=== PATIENT | female | born 1950 | race Caucasian/White ===

== ENCOUNTER 2021-03-08 14:20 | Outpatient (REF) | payer OTHER, SELFPAY ==
--- NOTE | 2021-03-08 16:05 | MHC.AU.ANO ---
Adult Audiological Evaluation Date of Visit: 03/08/21 Ward Service Supervisor Used: Not Applicable Reason for Appointment: Audiologic evaluation due to decreased hearing, left ear greater than right. Charis reports she first noticed a gradual decrease in left ear hearing ability with a constant whooshing or 'static sound in the left ear at least 5 years ago. She usually uses the left ear on the phone and noticed approximately two months ago when experiencing sinus/cold symptoms, she suddenly could not hear when using the phone on the left ear. Hearing in the left ear did improve after the cold symptoms resolved; however, she feels the hearing fluctuates. Charis denies any problems with dizziness/balance/vertigo and no history of head trauma. 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 Due to COVID-19, she has not been shooting. Her father had a history of hearing loss and vertigo. Charis is scheduled to see Loan And Credit Manager, Dr. Rush on 06/02/2021. Has hearing been tested previously?: No Hearing Handicap Inventory: HHIE SCORE: 8 Based on HHIE score, patient has: No perceived hearing handicap Ear History: Family History of Hearing Loss?: Yes: Father History of Ear Wax Buildup: As a child Bothersome Tinnitus/Ringing/Noises in Ears: Left Ear Medical History: Medical History: Measles, Mumps, Past history of Tobacco Use Medication List: Atorvastatin, L-Lysine, Multivitamin, Calcium, Florastor Otoscopy: Right Ear: Unremarkable Left Ear: Clear canal with a small area of redness on the bottom of canal. Tympanometry: Tympanometry performed due to: To assess integrity of the middle ear system Right Ear: Normal Middle Ear System (Type A) Left Ear: Normal Middle Ear System (Type A) Otoacoustic Emissions Frequency Range Used: 1.6-8 kHz Right Ear Results: Present 9921-6453 Hz Absent 0743-0398 Hz Analysis: Present emissions suggest normal cochlear function Rules out peripheral hearing loss greater than a mild degree Reduced/Absent emissions suggest cochlear dysfunction Left Ear Results: Absent Emissions Analysis: Reduced/Absent emissions suggest cochlear dysfunction Results are consistent with degree and configuration of hearing loss Hearing Evaluation: Transducer(s) Used: Insert Earphones Bone Conduction Method: Conventional Audiometry Stimuli Used: Pure Tones Right Ear: Description of Hearing: Normal hearing thresholds 250-4000 Hz, sloping to borderline normal thresholds at 1182-7865 Hz Left Ear: Description of Hearing: Moderately-severe mixed hearing loss at 250 and 500 Hz, rising to a moderate mixed hearing loss 1923-4110 Hz Speech Recognition Threshold (SRT): Method Used: Monitored Live Voice Stimuli Used: Spondee Words Right Ear: 10 dB HL Left Ear: 50 dB HL Word Discrimination: Method: Recorded Lists Word Lists Used: NU-6 Right Ear: 100% at 50 dB HL Left Ear: 36% at 85 dB HL Most Comfortable Level (MCL): Right Ear:DNT Left Ear: 85 dB HL Recommendations: Proceed with the consultation with Dr. Rush for further work-up of the asymmetric hearing loss and left ear tinnitus. Audiological re-evaluation in 6 months. Will send a reminder card. Diagnosis: Primary Diagnosis: H90.72 Mixed HL, Unilateral, Left Ear, W/Unrestricted Contralateral Secondary Diagnosis: H93.12 Tinnitus, Left Ear Services Performed: Comprehensive Audiological Evaluation (CPT 04727) Diagnostic Otoacoustic Emissions (CPT 75597, 26+TC) Tympanometry (CPT 15315) Signature: Provider: Sunshine Ivy, CCC-A
== END 2021-03-08 14:21 | disposition home or self-care (01) ==
LOC: HO.SH 14:20
PROVIDERS: Visit Provider Physician Assistant
DX: H90.72 Mixed conductive and sensorineural hearing loss, unilateral, left ear, with unrestricted hearing on the contralateral side (principal); H93.12 Tinnitus, left ear
CPT/HCPCS: 92557; 92567; 92588

== ENCOUNTER 2021-11-01 10:26 | Outpatient (REF) | payer SELFPAY ==
--- NOTE | 2021-11-01 11:44 | MHC.AU.HAS ---
Hearing Aid Evaluation Date of Visit: 11/01/21 Historical Information: Description of Hearing: Right Ear - Normal hearing thresholds 250-8000 Hz Left Ear - Moderately-severe rising to moderate mixed hearing loss with poor speech discrimination. Current personal amplification information, if applicable: None Summary: Patient was referred for ENT consult after being tested at this office in February 2021. Patient saw Dr. Rush in May 2021. Had knee surgery and just able to now come to appointment for HAE. No imagining study was completed and patient reports Dr. Washington recommended Cochlear Implant for the left ear. Patient did not want CI and was cleared for amplification for the left ear only. We discussed extensively the potential problem with just aiding the left ear due to the very poor discrimination ability. Patient does want to try amplification. I recommend ordering a CROS system. Will do a quick pure tone and speech discrimination/Quick SIN prior to fitting aids, and then do Aided Quick SIN to see if any improvement with just using aid on left ear. If not will proceed with fitting the CROS system. Patient would like to trial Premium rechargeable hearing aid(s). Hearing Aid Prescription: Based on the individual?s shared listening needs, communication environments, dexterity, desire for connectivity, and personal preferences, the following prescription for amplification has been made: Right ear: Family Services Specialist: [email or web address] Model: Audeo P 90-R Battery Size: Rechargeable Color: P1 Sand Beige Auto Body Repairer: 1 Medium Type of Dome: Open Left ear:Family Services Specialist: Phonak Model: CROS-R Battery Size: Rechargeable Color: P1 Sand Beige Auto Body Repairer: 1 CROS Type of Dome: Open Plan of Care: Patient wishes to purchase hearing aids as prescribed Action Taken/Action Needed:Hearing Aid Fitting will be scheduled when all materials received Primary Diagnosis: H90.72 Mixed HL, Unilateral, Left Ear, W/Unrestricted Contralateral Secondary Diagnosis: H93.12 Tinnitus, Left Ear Signature:Provider: César Ivy, [facility]
== END 2021-11-01 10:27 | disposition home or self-care (01) ==
LOC: HO.HAP 10:26
PROVIDERS: PCP Internal Medicine; Visit Provider Otolaryngology
DX: Z46.1 Encounter for fitting and adjustment of hearing aid (principal); H90.72 Mixed conductive and sensorineural hearing loss, unilateral, left ear, with unrestricted hearing on the contralateral side; H93.12 Tinnitus, left ear
CPT/HCPCS: 92590; 92591

== ENCOUNTER 2021-11-09 08:41 | Outpatient (REF) | payer SELFPAY ==
--- NOTE | 2021-11-24 11:52 | MHC.AU.HFL ---
Hearing Instrument Fitting- Adult- Left Ear Date of Visit: 11/09/21 Hearing Instrument(s) Dispensed: Left Ear: [place] Rug Setter: Phonak Model: Audeo P 90-R Serial Number: [id number] Repair Warranty: 01/30/2025 Loss and Damage Warranty: 01/30/2025 Battery Size: Rechargeable Color: P1 Sand Beige Glue Mounter Operator: 1M Type of Dome: Small Open Type of Wax Guard: CeruShield Summary of Fitting: Patient has a fluctuating loss in the left ear. She has a history of significant congestion/allergies. At her last visit on 03/08/2021, she was found to have moderately-severe rising to moderate mixed hearing loss with 36% speech discrimination in the left ear. Patient was referred to ENT. Per patient, no imaging studies were ordered and a cochlear implant was recommended. Patient was not ready to pursue a cochlear implant at this time, and opted to try a CROS hearing aid system. Given the length of time since her last audio, a quick pure tone and word discrimination re-check was performed. The results showed that the conductive component appears to have resolved, and the thresholds have improved in the left ear. Her word discrimination in the left ear is not 92%. The left ear is now considered aidable. Patient was fit with the Phonak Audeo P90-R on her left ear. The CROS was returned to [employer], as it is not needed. Feedback senior project manager was run. Verifit was performed and levels adjusted to better reach targets. Patient felt it was intially too loud- gain was lowered. Patient was pleased with the sound of the instrument. It was not paired to her phone at this time.Hearing aid care and maintenance were discussed and practiced. Recommendations: A hearing instrument follow-up was scheduled. Follow-up with ENT may be warranted to discuss the improvement in hearing, her continued concerns about congestion/allergies, and to further investigate the sensorineural asymmetry. Diagnosis Code(s): Primary Diagnosis: H90.42 SNHL Unilateral Left Side, W/Unrestricted Contralateral Hearing Secondary Diagnosis: H93.12 Tinnitus, Left Ear Signature: Provider: Sunshine Toro, [facility]
--- NOTE | 2021-11-24 11:53 | MHC.AU.HFL ---
Hearing Instrument Fitting- Adult- Left Ear Date of Visit: 11/09/21 Hearing Instrument(s) Dispensed: Left Ear: Asset Administrator: Phonak Model: Audeo P 90-R Serial Number: [id number] Repair Warranty: 01/30/2025 Loss and Damage Warranty: 01/30/2025 Battery Size: Rechargeable Color: P1 Sand Beige Clean Rice Broker: 1M Type of Dome: Small Open Type of Wax Guard: CeruShield Summary of Fitting: Patient has a fluctuating loss in the left ear. She has a history of significant congestion/allergies. At her last visit on 03/08/2021, she was found to have moderately-severe rising to moderate mixed hearing loss with 36% speech discrimination in the left ear. Patient was referred to ENT. Per patient, no imaging studies were ordered and a cochlear implant was recommended. Patient was not ready to pursue a cochlear implant at this time, and opted to try a CROS hearing aid system. Given the length of time since her last audio, a quick pure tone and word discrimination re-check was performed. The results showed that the conductive component appears to have resolved, and the thresholds have improved in the left ear. Her word discrimination in the left ear is not 92%. The left ear is now considered aidable. Patient was fit with the Phonak Audeo P90-R on her left ear. The CROS was returned to [employer], as it is not needed. Feedback social media project manager was run. Verifit was performed and levels adjusted to better reach targets. Patient felt it was intially too loud- gain was lowered. Patient was pleased with the sound of the instrument. It was not paired to her phone at this time.Hearing aid care and maintenance were discussed and practiced. Recommendations: A hearing instrument follow-up was scheduled. Follow-up with ENT may be warranted to discuss the improvement in hearing, her continued concerns about congestion/allergies, and to further investigate the sensorineural asymmetry. Diagnosis Code(s): Primary Diagnosis: H90.42 SNHL Unilateral Left Side, W/Unrestricted Contralateral Hearing Secondary Diagnosis: H93.12 Tinnitus, Left Ear Signature: Provider: Sunshine Toro, [facility]
== END 2021-11-09 08:42 | disposition home or self-care (01) ==
LOC: HO.HAP 08:41
PROVIDERS: Visit Provider Internal Medicine
DX: Z46.1 Encounter for fitting and adjustment of hearing aid (principal); H90.42 Sensorineural hearing loss, unilateral, left ear, with unrestricted hearing on the contralateral side
CPT/HCPCS: V5257; V5299

== ENCOUNTER 2021-12-27 12:57 | Outpatient (REF) | payer SELFPAY | END 2021-12-27 12:58 | disposition home or self-care (01) | LOC: HO.HAP 12:57 | PROVIDERS: Visit Provider Internal Medicine | DX: Z13.89 Encounter for screening for other disorder (principal) ==

== ENCOUNTER 2022-10-17 09:55 | Outpatient (REF) | payer SELFPAY ==
--- NOTE | 2022-10-17 12:44 | MHC.AU.HA3 ---
Hearing Instrument Follow-Up- Binaural Date of Visit: 10/17/22 Left Ear: Make, Model, Color, Serial Number: Maryan Brito P90-R SN: [id number] Color: Sand Beige Pastry Artist Repair Warranty: 01/30/2025 Pastry Artist Loss and Damage Warranty: 01/30/2025 [facility] Service Plan: 01/30/2025 Battery Size: Rechargeable Coke Loader/Slim Tube: 1M Earmold/Dome/CShell/SlimTip: Small open dome Type of Wax Guard: CeruShield Dispensed By: [facility] Date of Fittin11/09/2021 Follow-Up Summary: Charis reported that by the end of the day her hearing aid often sounds weaker than the beginning of the day, although it does not happen every day. She is unsure of any other specifics. Cleaned hearing aid. Replaced dome, wax guard, and retention tail. Vacuumed microphones and ran through dehumidifier. Increased overall volume slightly as well as noise management settings at Charis's request. She noted improvement in office. Charis will try the hearing aid with the adjustments. The perceived change in sound quality may be associated with her history of frequent congestion/allergies and fluctuating hearing loss or possibly due to auditory fatigue by the end of the day. Encourage use of volume control, as needed. If problem persists, Charis will drop the hearing aid off to be sent to the dental laboratory supervisor for in-warranty repair. Recommendations: Hearing instrument follow-up or maintenance as needed. Patient will call if problems persist. Diagnosis Code(s): Primary Diagnosis: H90.42 SNHL Unilateral Left Side, W/Unrestricted Contralateral Hearing Signature: Provider: Nate Brock, [facility]
== END 2022-10-17 09:56 | disposition home or self-care (01) ==
LOC: HO.HAP 09:55
PROVIDERS: Visit Provider Internal Medicine
DX: Z13.89 Encounter for screening for other disorder (principal)

== ENCOUNTER 2023-06-25 15:40 | Outpatient (REF) | payer SELFPAY | END 2023-06-25 15:41 | disposition home or self-care (01) | LOC: HO.HAP 15:40 | PROVIDERS: Visit Provider Internal Medicine | DX: Z13.89 Encounter for screening for other disorder (principal) ==

== ENCOUNTER 2024-01-08 15:54 | Outpatient (REF) | payer SELFPAY ==
--- NOTE | 2024-01-08 16:53 | MHC.AU.HA3 ---
Hearing Instrument Follow-Up- Date of Visit: 01/08/24 Left Ear: Make, Model, Color, Serial Number: Phonyany Figueroao P90-R SN: [id number] Color: Sand Beige Direct Sales Consultant Repair Warranty: 01/30/2025 Direct Sales Consultant Loss and Damage Warranty: 01/30/2025 [facility] Service Plan: 01/30/2025 Battery Size: Rechargeable Director Life Sciences/Slim Tube: 1M Earmold/Dome/CShell/SlimTip: Small open dome with retention tail Type of Wax Guard: CeruStop Dispensed By: [facility] Date of Fittin11/09/2021 Follow-Up Summary: Reports aid is not charging in credit card control clerk. Found aid to be in stock mode. Resolved. Firmware updated. Cleaned and checked aid, listening check positive. Gave a new Phonak charging block as well, for good measure. Recommendations: Recommendations: Hearing instrument follow-up or maintenance as needed. Diagnosis Code(s): Primary Diagnosis: H90.42 SNHL Unilateral Left Side, W/Unrestricted Contralateral Hearing Secondary Diagnosis: H93.12 Tinnitus, Left Ear Signature: Provider: Nate Fajardo, [facility]
== END 2024-01-08 15:55 | disposition home or self-care (01) ==
LOC: HO.HAP 15:54
PROVIDERS: Visit Provider Internal Medicine
DX: Z13.89 Encounter for screening for other disorder (principal)

== ENCOUNTER 2024-10-02 08:22 | Outpatient (REF) | payer SELFPAY ==
--- OUTSIDE RECORDS SUMMARY | 2024-10-02 08:27 | XMS_ITS | Clinical Summary ---
Author Organization [facility] Address [address] [place] [address] Care Team Providers Care Head Of Advertising Name Role Phone Leslie Lanza MD Primary Care Provid er Allergies Active Allergy Reactions Criticality Noted Date Comments Penicillins Swelling Medium 01/06/2013 Swelling At Arm site and rash Medications Medication Sig Dispensed Refills Start Date End Date Status atorvastatin (LIPITOR) tablet 10 mg Take 10 mg by mouth daily. 0 05/11/2021 Active L-Lysine 1000 MG TABS Take 2 tablets by mouth daily. 0 Active Multiple Vitamins-Minerals (CENTRUM SILVER PO) Take 1 tablet by mouth daily. 0 Active CALCIUM PO Take 750 mg by mouth daily. 0 Active Saccharomyces boulardii (FLORASTOR PO) Take 1 tablet by mouth daily. 0 Active B Complex Vitamins (B COMPLEX 1 PO) Take 1 tablet by mouth daily. 0 Active vitamin D3 (cholecalciferol) 25 MCG (1000 UT) tablet Take 25 mcg by mouth daily. 0 Active methocarbamol (ROBAXIN) 750 MG tablet Take 1 tablet (750 mg total) by mouth 4 (four) times a day. 180 tablet 0 07/31/2021 Active oxyCODONE (ROXICODONE) 5 MG immediate release tablet Take 1 tablet (5 mg total) by mouth every 4 (four) hours as needed for pain. 42 tablet 0 07/31/2021 Active clindamycin (CLEOCIN) 300 MG capsule Take 2 tabs one hour prior to dental procedure 2 capsule 2 08/09/2021 Active Active Problems Problem Noted Date Diagnosed Date Colon polyp 03/06/2021 Overview: 25mm polpy cecum- repeat colonoscopy in 6 months for surveillance after piecemeal polypetomy Diverticulosis 03/06/2021 Overview: Sigmoid colon- colonoscopy 03/02/2021 Primary osteoarthritis of both knees 01/24/2018 Environmental allergies 11/06/2016 Primary localized osteoarthrosis of hand 015 Adenoma of colon 05/18/2014 Overview: Dr. Miranda; 2 yr f/u; pt has declined Hypercholesterolemia 01/14/2013 Immunizations Name Administration Dates Next Due Covid-19 (FoundValue) Dilution Required 01/13/2021,0 07/09/2020,06/17/2020 Family History Medical History Relation Name Comments Heart disease Father CHF Heart disease Mother CHF No Sig Med Hx Sister 1 No Sig Med Hx Sister 2 Relation Name Status Comments Father (Age 87) Mother (Age 83) Sister 1 Alive Sister 2 Alive Social History Tobacco Use Types Packs/Day Years Used Date Smoking Tobacco: Former Cigarettes 2 1 - 1994 Smokeless Tobacco: Never Alcohol Use Standard Drinks/Week Comments Yes 14 (1 standard drink = 0.6 oz pu re alcohol) Sex and Gender Information Value Date Recorded Sex Assigned at Female 07/14/2021 9:39 AM EDT Gender Identity Female 07/14/2021 9:39 AM EDT Sexual Orientation Not on file Job Start Date Occupation Industry Not on file Not on file Not on file Last Filed Vital Signs Vital Sign Reading Time Taken Comments Blood Pressure 128/79 07/31/2021 1:16 PM EDT Pulse 65 07/31/2021 12:45 PM EDT Temperature 36.1 C (97 F) 07/31/2021 10:15 AM EDT Respiratory Rate 11 07/31/2021 12:45 PM EDT Oxygen Saturation 96% 07/31/2021 12:45 PM EDT Inhaled Oxygen Concentration - - Weight 70.8 kg (156 lb) 12/01/2021 2:56 PM EDT Height 167.6 cm (5' 6 ) 12/01/2021 2:56 PM EDT Body Mass Index 25.18 12/01/2021 2:56 PM EDT Plan of Treatment Health Maintenance Due Date Last Done Comments Hepatitis C Screening 1950 Depression Screening 1963 Preventative Health Evaluation 11/01/1969 Colon Cancer Screening (Colonoscopy) 11/01/1996 Breast Cancer Screening (Mammogram) 11/01/2001 Shingrix-Zoster Vaccine (1 of 2) 11/01/2001 Fall Risk Assessment 11/01/2016 Osteoporosis Screening (DEXA Scan) 11/01/2016 DTap / Tdap / Td (2 - Td or Tdap) 01/06/2023 01/06/2013 COVID-19 Vaccine ( season) 2023 01/13/2021, 07/09/2020, 06/17/2020, Additional history exists Influenza Vaccine (#1) 2024 , 01/13/2018, 12/16/2014, Additional history exists RSV Adult > 60+ Yrs or (1 - 1-dose 75+ series) 11/01/2026 Pneumococcal Vaccine Completed 01/24/2018, 11/07/19 17 Hepatitis B Vaccines Aged Out No long er eligible based on patient's age to complete this topic RSV Ped < 20 months Aged Out No longe r eligible based on patient's age to complete this topic Medical Devices Implanted Type Area Cold Roll Operator Device Identifier Shelf Expiration Date Model / Serial / Lot Knee Ptla Asym Tritanium 32x10 Stry-Howm [id number] - [id number] Implanted:Qty: 1 on 07/31/2021 by Remigio Ocasio MD at [facility] Right: Knee [facility] [id number] 09/21/2025 5552-L-320 / / [id number] Knee Tib Insrt Cr 5x13mm Stry-Howm [id number] - [id number] Implanted:Qty: 1 on 07/31/2021 by Remigio Ocasio MD at [facility] Right: Knee [facility] [id number] 12/25/2025 5530-P-[id number] / / [id number] Knee Bsplt Triathlon Ti Sz 5 Stry-Howm [id number] - [id number] Implanted:Qty: 1 on 07/31/2021 by [place]igio [place]casio [place] [facility] [place]nee [facility] [id number] 05/07/2026 5536-[id number] / / [id number] Knee Fem [facility]splt [facility] [id number] - [id number] Implanted:Qty: 1 on 07/31/2021 by Remigio Ocasio MD at [facility] Right: Knee [facility] [id number] 01/11/2026 [id number]-F-[id number] / / [id number] Advance Directives For more information, please contact: [phone] Documents on File Type Date Recorded Patient Ged Tutor Expl anation Advance Directive and Living Will 07/21/2021 Latest Code Status on File Code Status Date Activated Date Inactivated Comments Full Code 07/31/2021 5:32 AM 07/31/2021 10:38 PM This code status was ascertained in the following way: discussion with patient . Care Teams Head Of Advertising Relationship Specialty Start Date End Date Leslie Lanza MD PCP - General Internal Medicine 03/31/21
--- OUTSIDE RECORDS SUMMARY | 2024-10-02 08:27 | XMS_ITS | Clinical Summary ---
Author Organization [address] Address [address] [place] [phone] Phone Care Team Providers Care Extern Name Role Phone Unavailable Primary Care Provider Unavailabl e Allergies Active Allergy Reactions Criticality Noted Date Comments Penicillins Swelling Medium 01/06/2013 Swelling At Arm site and rash Medications lysine 1,000 mg tablet Take 1 tablet (1,000 mg total) by mouth 1 (one) time each day. Active sodium chloride (AYR) 0.65 % nasal drops Administer 1 spray into affected nostril(s) if needed. 4 Active metoprolol succinate (TOPROL-XL) 25 mg 24 hr tablet Take 0.5 tablets (12.5 mg total) by mouth 1 (one) time each day. 4 Active fluticasone propionate (FLONASE) 50 mcg/actuation nasal spray Administer 1 spray into affected nostril(s) if needed. 4 Active calcium carbonate-vitam in D3 600 mg-10 mcg (400 unit) capsule Take 1 tablet by mouth 1 (one) time each day. Active multivitamin with minerals (CENTRUM/CERTAV IT) 18-400 mg-mcg tablet tablet Take 1 tablet by mouth 3 (three) times a week. Active atorvastatin (LIPITOR) 10 mg tablet TAKE 1 TABLET BY MOUTH EVERY DAY 90 tablet 1 5 Active vit A/C/E ac/ZnOx/cupric oxide (EYE VITAMIN AND MINERALS ORAL) Take 1 tablet by mouth. Takes on days that she does not take multivitamin Active apixaban (Eliquis) 5 mg tablet Take 1 tablet (5 mg total) by mouth 2 (two) times a day. 180 tablet 3 5 Active Active Problems Problem Noted Date Diagnosed Date Palpitation 09/01/2024 Mixed hyperlipidemia 08/05/2023 Osteopenia 08/05/2023 Typical atrial flutter (CMS/HCC V24, CMS/HCC V28 ) 07/15/2023 Assessment & Plan (09/02/2024 10:47 AM EDT): -Started sudden palpitation symptoms at work sometime in late winter or early spring 2023- - Holter monitor: 06/2024, Predominantly sinus rhythm with average heart rate 81 bpm, but episodes of paroxysmal atrial fibrillation and atrial flutter with heart rates in the 180s. There were also episodes of atrial tachycardia up to 16 beats. The total duration of time in A-fib was about 3 hours and 3 minutes. - Echocardiogram: 08/2023, Mild concentric LV hypertrophy with sigmoid septum which is a benign variant. Normal cavity size and systolic function. Normal regional wall motion with an EF of 55% to 60%. Normal RV size and systolic function. No hemodynamically significant valve disease but evidence of slight chordal RAIMUNDO though no flow acceleration. Upper normal ascending aorta at 3.7 cm, normal PA systolic pressure. Normal left ventricular diastolic function. Assessment & Plan (03/26/2024 9:00 AM EST): She is doing well. She is anticoagulated and takes metoprolol. I reviewed her echocardiogram and holter monitor. I don't believe she was ever seen by a analyst sales. I will place a referral today. Orders: Complete blood count; Future Comprehensive metabolic panel; Future Thyroid stimulating hormone; Future Lipid panel with reflex to direct LDL; Future Ambulatory referral to Cardiology; Future Colon polyp 03/06/2021 Overview (01/07/2024): 25mm polpy cecum- repeat colonoscopy in 6 months for surveillance after piecemeal polypetomy Diverticulosis 03/06/2021 Overview (01/07/2024): Sigmoid colon- colonoscopy 03/02/2021 Primary osteoarthritis of both knees 01/24/2018 Localized, primary osteoarthritis of hand 2014 Adenoma of colon 05/18/2014 Overview (01/07/2024): Dr. Miranda; 2 yr f/u; pt has declined Hypercholesterolemia 01/14/2013 Assessment & Plan (03/26/2024 9:00 AM EST): Will repeat lipid panel. Orders: Complete blood count; Future Comprehensive metabolic panel; Future Thyroid stimulating hormone; Future Lipid panel with reflex to direct LDL; Future Encounters Date Type Department Care Team Description 09/02/2024 8:20 AM EDT Office Visit [facility] [address] [facility] [address] [place] [address] Michelle Mitchell MD Typical atrial flutter (CMS/HCC V24, CMS/HCC V28) (Primary Dx); Hypercholesterolemia 08/24/2024 4:00 PM EDT Office Visit Adult Medicine [address] [phone] Pinky Gaytan PA Adult general medical examination (Primary Dx); Screening for diabetes mellitus; Hypercholesterolemia; Osteopenia, unspecified location; Mixed hyperlipidemia; Atrial fibrillation, unspecified type (CMS/HCC V24, CMS/HCC V28); Polyp of sigmoid colon, unspecified type from Last 3 Months Immunizations Name Administration Dates Next Due COVID-19 (Pfizer/Comirnaty) 12yo and older 01/10/2023 Influenza trivalent, 0.5mL ( Fluad) 65yo and older 01/25/2021 Influenza trivalent, 0.5mL ( Fluzone High-dose) 65yo and older 01/07/2024 Influenza trivalent, 0.5mL, preservative free (Fluarix; FluLaval; Fluzone) ages 6mo and older (Afluria) 3 years and older 01/13/2018,12/16/2014,01/20/2014,12/08 Influenza, Unspecified 01/10/2023,12/28/2021 Scodix SARS-CoV-2 COVID-19, mRNA, LNP-S, preservative free 01/10/2023,01/10/2022,01/13/2021,07/09,06/17/2020,05/11/2020 Pneumococcal conjugate 13 va lent (Prevnar 13, PCV13) 2mo and older 11/06/2016 Pneumococcal polysaccharide 23 valent (Pneumovax 23) 2yo and older 01/24/2018 Tdap Tetanus diptheria acell ular pertussis (Boostrix; Adacel) 7yo and older 03/26/2024,01/06/2013 Surgical History Surgery Date Site/Laterality Comments TONSILLECTOMY PROCEDURE: [place] TONSILLECTOMY PRIMARY/SECONDARY <AGE 12 COLONOSCOPY 03/18/2001 PROCEDURE: HISTORICAL COLONOSCOPY; COMMENT: [facility]; negative COLONOSCOPY W/ BIOPSIES 05/18/2014 PROCEDURE: [place] COLONOSCOPY W/BIOPSY SINGLE/MULTIPLE; COMMENT: bx RC polyp: sessile serrated adenoma. TOTAL KNEE ARTHROPLASTY 07/31/2021 Right PROCEDURE: HISTORICAL TOTAL KNEE REPLACE; COMMENT: Dr. Ocasio Medical History Medical History Date Comments Primary localized osteoarthr osis, hand 02/25/2015 DX:Primary localized osteoar throsis, hand Paroxysmal atrial fibrillati on (CMS/HCC V24, CMS/HCC V28) DX:Paroxysmal atrial fibril lation (HCC) Osteopenia DX:Osteopenia Mixed hyperlipidemia DX:Mixed hy perlipidemia Family History Medical History Relation Name Comments Atrial fibrillation Mother Other: pacemaker Mother Heart attack Paternal Grandfather Heart attack Paternal Grandmother htn Hypertension Sister 1 Sarah No Known Problems Sister 2 Santana Other cancer Neg Hx Relation Name Status Comments Father (Age 87) heart fail ure Grandparent htn Mother (Age 80s) dementia, heart failure Paternal Grandfather Paternal Grandmother Sister 1 Sarah Alive RN, jennyfer sery Sister 2 Santana Alive gout as child; TAG MARKER Social History Tobacco Use Types Packs/Day Years Used Date Smoking Tobacco: Former Cigarettes Q uit: 03/18/1994 Smokeless Tobacco: Never Tobacco Cessation:Counseling Given: Not Answered Alcohol Use Standard Drinks/Week Comments Not Currently 7 (1 standard drink = 0.6 oz pur e alcohol) Housing Instability Answer Date Recorde d Are you worried that in the next 2 months you may not have stable housing? No 08/17/2024 Food Access & Nutrition Answer Date Rec orded Do you have access to a vari ety of food including fruits and vegetables? Yes 08/17/2024 Access to Healthcare Answer Date Record ed Within the last 3 months, ho w many times did you visit the emergency department for your medical care? 0 08/17/2024 Health Literacy Answer Date Recorded How often do you need to hav e someone help you when you read instructions, pamphlets, or other written material from your doctor or pharmacy? Never 08/17/2024 Caregiver: How often do you need to have someone help you when you read instructions, pamphlets, or other written material from your doctor or pharmacy? Not on file 08/17/2024 Financial Risk Answer Date Recorded How hard is it for you to pa y for the very basics like food, housing, medical care, and air conditioning / heating? Patient declined 08/17/2024 Transportation Answer Date Recorded Has the lack of transportati on kept you from meetings, work, or from getting things needed for daily living? No Has the lack of transportati on kept you from medical appointments or from getting medications? No 08/17/2024 Social Isolation Answer Date Recorded How often do you feel lonely or isolated from th ose around you? Never 08/17/2024 Food Risk Answer Date Recorded Within the past 12 months we worried whether our food would run out before we got money to buy more. Never true 08/17/2024 Within the past 12 months th e food we bought just didn't last and we didn't have money to get more. Never true 08/17/2024 Dependent Care Answer Date Recorded Do you need help finding or paying for care for your loved ones. For example, child nutrition assistant or elderly care for an older adult? Patient declined 08/17/2024 Education Answer Date Recorded Do you think completing more education or training, like finishing a GED, going to college, or learning a trade, would be helpful for you? N/A 08/17/2024 Employment and Income Answer Date Recor ded During the last four weeks, have you been actively looking for work? No 08/17/2024 Living Situation Answer Date Recorded What is your living situation? 0 08/17/2024 Comments No Sex and Gender Information Value Date Recorded Sex Assigned at Not on file Legal Sex Female 1:54 PM EDT Gender Identity Not on file Sexual Orientation Not on file Obstetrics History Para Term AB IAB SAB Ectopic Multiple Livin g Live Births 0 0 0 Last Filed Vital Signs Vital Sign Reading Time Taken Comments Blood Pressure 122/60 09/02/2024 8:03 AM EDT Pulse 65 09/02/2024 8:03 AM EDT Temperature 36.4 C (97.6 F) 08/24/2024 3:49 PM EDT Respiratory Rate 16 08/24/2024 3:49 PM EDT Oxygen Saturation 97% 09/02/2024 8:03 AM EDT Inhaled Oxygen Concentration - - Weight 71.8 kg (158 lb 3.2 oz) 09/02/2024 8:03 A M EDT Height 170.2 cm (5' 7 ) 09/02/2024 8:03 AM EDT Body Mass Index 24.78 09/02/2024 8:03 AM EDT Plan of Treatment Health Maintenance Due Date Last Done Comments Zoster Vaccines (1 of 2) 11/01/2001 Falls Risk Assessment 02/23/2022 Hepatitis C Screening 02/23/2022 Medicare Annual Wellness Visit 02/23/2022 COVID-19 Vaccine ( season) 2024 01/14/2024, 01/10/2023, 01/10/2023, Additional history exists Influenza Vaccine (#1) 2024 , 01/10/2023, 12/28/2021, Additional history exists Colorectal Cancer Screening: Colonoscopy 03/16/2025 03/16/2022 Depression Screening 08/17/2025 08/17/2024 Social Influencers of Health Screening 08/17/2025 08/17/2024 Breast Cancer Screening 02/09/2026 02/10/20 24, 02/01/2023, 02/01/2023, Additional history exists RSV Immunization Adult Patients (1 - 1-dose 75+ series) 11/01/2026 Cholesterol Screening (Lipid Panel) 03/26/2029 03/26/2024, 12/28/2022 Osteoporosis Screening (Bone Density Screening) 11/22/2032 11/22/2022, 12/03/2016 DTaP,Tdap,and Td Vaccines (3 - Td or Tdap) 03/26/2034 03/26/2024, 01/06/2013 Pneumococcal Vaccine: 50+ Years Completed 01/24/2018, 11/06/2016 HIB Vaccines Aged Out No longer eligi ble based on patient's age to complete this topic HPV Vaccines Aged Out No longer eligi ble based on patient's age to complete this topic Hepatitis A Vaccines Aged Out No long er eligible based on patient's age to complete this topic Hepatitis B Vaccines Aged Out No long er eligible based on patient's age to complete this topic IPV Vaccines Aged Out No longer eligi ble based on patient's age to complete this topic MMR Vaccines Aged Out No longer eligi ble based on patient's age to complete this topic Meningococcal ACWY Vaccine Aged Out N o longer eligible based on patient's age to complete this topic Meningococcal B Vaccine Aged Out No l onger eligible based on patient's age to complete this topic RSV Immunization Patients Under 20 months Aged Out No longer eligible based on patient's age to complete this topic Varicella Vaccines Aged Out No longer eligible based on patient's age to complete this topic Medical Devices Implanted Type Area Registrar Assistant Device Identifier Shelf Expiration Date Model / Serial / Lot Knee Ptla Asym Tritanium 32x10 Stry-Howm [id number] Implanted:Qty: 1 on 07/31/2021 by Remigio Ocasio MD Right: Knee [employer] [id number] 09/21/2025 5552-L-320 / / [id number] Knee Tib Insrt Cr 5x13mm Stry-How [id number] Implanted:Qty: 1 on 07/31/2021 by Remigio Ocasio MD Right: Knee [employer] [id number] 12/25/2025 5530-P-511 / / [id number] Knee Bsplt Triathlon Ti Sz 5 Stry-Howm [id number] Implanted:Qty: 1 on 07/31/2021 by Remigio Ocasio MD Right: Knee [employer] [id number] 05/07/2026 5536-B-500 / / [id number] Knee Fem Bsplt W Pa [employer]Leanna [id number] Implanted:Qty: 1 on 07/31/2021 by Remigio Ocasio MD Right: Knee [employer] [id number] 01/11/2026 [id number]-F-[id number] / / [id number] Procedures Procedure Name Priority Date/Time Associated Diagnosis Comments CBC WITH AUTO DIFFERENTIAL Routine 09/02/2024 9:56 AM EDT Hypercholesterolemia Adult general medical examination Osteopenia, unspecified location Mixed hyperlipidemia Atrial fibrillation, unspecified type (CMS/HCC V24, CMS/HCC V28) Screening for diabetes mellitus CBC AND DIFFERENTIAL Routine 09/02/2024 9:56 AM EDT Hypercholesterolemia Adult general medical examination Osteopenia, unspecified location Mixed hyperlipidemia Atrial fibrillation, unspecified type (CMS/HCC V24, CMS/HCC V28) Screening for diabetes mellitus COMPREHENSIVE METABOLIC PANEL Routine 09/02/2024 9:56 AM EDT Hypercholesterolemia Adult general medical examination Osteopenia, unspecified location Mixed hyperlipidemia Atrial fibrillation, unspecified type (CMS/HCC V24, CMS/HCC V28) Screening for diabetes mellitus HEMOGLOBIN A1C Routine 09/02/2024 9:56 AM EDT Hypercholesterolemia Adult general medical examination Osteopenia, unspecified location Mixed hyperlipidemia Atrial fibrillation, unspecified type (CMS/HCC V24, CMS/HCC V28) Screening for diabetes mellitus ECG 12-LEAD Routine 09/02/2024 8:14 AM EDT Typical atrial flutter (CMS/HCC V24, CMS/HCC V28) LIPID PANEL WITH REFLEX TO DIRECT LDL Routine 03/26/2024 9:25 AM EST Atrial fibrillation, unspecified type (CMS/HCC V24, CMS/HCC V28) Hypercholesterolemia MG MAMMO DIGITAL SCREENING W JORGE BILAT Routine 02/10/2024 3:20 PM EST Encounter for screening mammogram for breast cancer DXA BONE DENISTY STUDY VERTEBRAL FRACTURE, INCLUDING LATERAL VIEW Routine 11/22/2022 3:17 PM EDT Encounter for screening for osteoporosis from Last 3 Months or Most Recently Relevant to Health Maintenance Results * (ABNORMAL) CBC auto differential (09/02/2024 9:56 AM EDT) [facility] WBC 7.2 4.8 - 10.8 K/mcL LAB HEMETOLOGY METHOD 09/02/2024 12:25 PM EDT [facility] RBC 4.40 3.80 - 4.80 M/mcL LAB HEMETOLOGY METHOD 09/02/2024 12:25 PM EDT [facility] Hemoglobin 13.8 11.5 - 16.0 g/dL LAB HEMETOLOGY METHOD 09/02/2024 12:25 PM EDT [facility] Hematocrit 42.6 35.0 - 47.0 % LAB HEMETOLOGY METHOD 09/02/2024 12:25 PM EDT [facility] MCV 97.9 79.0 - 98.0 FL LAB HEMETOLOGY METHOD 09/02/2024 12:25 PM EDT [facility] MCH 31.7 27.0 - 32.0 pcg LAB HEMETOLOGY METHOD 09/02/2024 12:25 PM EDT [facility] MCHC 32.4 32.0 - 37.0 g/dL LAB HEMETOLOGY METHOD 09/02/2024 12:25 PM EDT [facility] RDW 12.9 11.0 - 15.0 % LAB HEMETOLOGY METHOD 09/02/2024 12:25 PM EDT [facility] Platelets 203 130 - 400 K/mcL LAB HEMETOLOGY METHOD 09/02/2024 12:25 PM EDT [facility] MPV 9.5 7.0 - 11.0 FL LAB HEMETOLOGY METHOD 09/02/2024 12:25 PM EDT [facility] NRBC 0.0 <1.0 % LAB HEMETOLOGY METHOD 09/02/2024 12:25 PM EDT [facility] NRBC Absolute 0.00 <0.10 K/mcL LAB HEMETOLOGY METHOD 09/02/2024 12:25 PM EDT [facility] Neutrophils Relative 65.7 % LAB HEMETOLOGY METHOD 09/02/2024 12:25 PM EDT [facility] Lymphocytes Relative 24.3 % LAB HEMETOLOGY METHOD 09/02/2024 12:25 PM EDT [facility] Monocytes Relative 5.5 % LAB [facility]EM[facility]OLOGY [facility] Eosinophils Relative 3.3 % [facility]EMETOLOGY [facility] Basophils Relative 0.6 % LAB HEMETOLOGY METHOD 09/02/2024 12:25 PM EDT [facility] Immature Granulocytes Relative 0.6 % LAB HEMETOLOGY METHOD 09/02/2024 12:25 PM EDT [facility] Neutrophils Absolute 4.75 1.50 - 7.00 K/mcL LAB HEMETOLOGY METHOD 09/02/2024 12:25 PM EDT [facility] Lymphocytes Absolute 1.76 1.00 - 5.00 K/mcL LAB HEMETOLOGY METHOD 09/02/2024 12:25 PM EDT [facility] Monocytes Absolute 0.40 0.20 - 1.00 K/mcL LAB HEMETOLOGY METHOD 09/02/2024 12:25 PM EDT [facility] Eosinophils Absolute 0.24 0.00 - 0.50 K/mcL LAB HEMETOLOGY METHOD 09/02/2024 12:25 PM EDT [facility] Basophils Absolute 0.04 0.00 - 0.20 K/mcL LAB HEMETOLOGY METHOD 09/02/2024 12:25 PM EDT [facility] Immature Granulocytes Absolute 0.04(H) 0.00 - 0.03 K/mcL LAB HEMETOLOGY METHOD 09/02/2024 12:25 PM EDT [facility] Blood Venous blood specimen / Unknown Venipuncture / Unknown 09/02/2024 9:56 AM EDT 09/02/2024 9:56 AM EDT Pinky PALENCIA LAB BLOOD ORDERABLES Fin al Result Performing Organization Address [facility]/ZIP Co de Phone Number [facility] [address] [place] [address], [place] [phone] * Hemoglobin A1c (09/02/2024 9:56 AM EDT) Hemoglobin A1C 5.6 <6.5 % LAB CHEMISTRY METHOD 09/02/2024 2:30 PM EDT [facility] Mean Bld Glu Estim. 114 mg/dL LAB CHEMISTRY METHOD 09/02/2024 2:30 PM EDT [facility] Blood Venous blood specimen / Unknown Venipuncture / Unknown 09/02/2024 9:56 AM EDT 09/02/2024 9:56 AM EDT [facility] Rosa M PALENCIA LAB BLOOD ORDERABLES Fin al Result Performing Organization Address City/[facility]/ZIP Co de Phone Number [facility] [address] [place] [address], [place] [phone] * Comprehensive metabolic panel (09/02/2024 9:56 AM EDT) Sodium 139 133 - 145 mmol/L LAB CHEMISTRY METHOD 09/02/2024 1:57 PM EDT [facility] Potassium 3.9 3.5 - 5.5 mmol/L LAB CHEMISTRY METHOD 09/02/2024 1:57 PM EDT [facility] Chloride 104 96 - 110 mmol/L LAB CHEMISTRY METHOD 09/02/2024 1:57 PM [facility] CO2 29 21 - 32 mmol/L LAB CHEMISTRY METHOD 09/02/2024 1:57 PM [facility] Anion Gap 6 3 - 11 LAB CHEMISTRY METHOD 09/02/2024 1:57 PM [facility] Glucose 89 70 - 100 mg/dL LAB CHEMISTRY METHOD 09/02/2024 1:57 PM [facility] BUN 18 5 - 25 mg/dL LAB CHEMISTRY METHOD 09/02/2024 1:57 PM [facility] Creatinine 0.74 0.50 - 1.10 mg/dL LAB CHEMISTRY METHOD 09/02/2024 1:57 PM [facility] eGFR 86 >=60 mL/min/1. 73m2 LAB CHEMISTRY METHOD 09/02/2024 1:57 PM [facility] Comment:Calculation based on the Chronic Kidney Disease Epidemiology Collaboration (CKD-EPI) equation refit without adjustment for race. BUN/Creatinine Ratio 24.3 LAB CHEMISTRY METHOD 09/02/2024 1:57 PM [facility] Calcium 9.5 8.5 - 10.5 mg/dL LAB CHEMISTRY METHOD 09/02/2024 1:57 PM [facility] AST (SGOT) 28 10 - 42 unit/L LAB CHEMISTRY METHOD 09/02/2024 1:57 PM [facility] ALT (SGPT) 29 10 - 60 unit/L LAB CHEMISTRY METHOD 09/02/2024 1:57 PM [facility] Alkaline Phosphatase 87 42 - 121 unit/L LAB CHEMISTRY METHOD 09/02/2024 1:57 PM [facility] Total Protein 6.9 6.0 - 8.0 g/dL LAB CHEMISTRY METHOD 09/02/2024 1:57 PM [facility] Albumin 4.1 3.2 - 5.0 g/dL LAB CHEMISTRY METHOD 09/02/2024 1:57 PM EDT [facility] Total Bilirubin 1.0 0.0 - 1.4 mg/dL LAB CHEMISTRY METHOD 09/02/2024 1:57 PM EDT [facility] Blood Venous blood specimen / Unknown Venipuncture / Unknown 09/02/2024 9:56 AM EDT 09/02/2024 9:56 AM EDT Pniky PALENCIA LAB BLOOD ORDERABLES Fin al Result Performing Organization Address City/[facility]/ZIP Co de Phone Number [facility]) [facility] [address] [place] [address], [place] [phone] * ECG 12 lead (09/02/2024 8:14 AM EDT) Ventricular Rate ECG 55 BPM GEMUSE Atrial Rate 55 BPM GEMUSE P-R Interval 178 ms GEMUSE QRS Duration 72 ms GEMUSE Q-T Interval 410 ms GEMUSE QTc 392 ms GEMUSE P [place] 62 degrees GEMUSE R [place] 17 degrees GEMUSE T [place] 35 degrees GEMUSE ECG Interpretation Sinus bradycardia Otherwise normal ECG No previous ECGs available Confirmed by MICHELLE MITCHELL ([id number]) on 09/02/2024 9:10:45 AM GEMUSE 09/02/2024 8:14 AM EDT 09/02/2024 9:10 AM EDT Michelle Mitchell MD ECG ORDERABLES Final Result GEMUSE * Lipid panel with reflex to direct LDL (03/26/2024 9:25 AM EST) Cholesterol 173 0 - 200 mg/dL LAB CHEMISTRY METHOD 03/26/2024 1:28 PM EST [facility] Triglycerides 86 0 - 150 mg/dL LAB CHEMISTRY METHOD 03/26/2024 1:28 PM EST [facility] HDL 80 >=40 mg/dL LAB CHEMISTRY METHOD 03/26/2024 1:28 PM EST [facility] LDL Calculated 76 0 - 100 mg/dL LAB CHEMISTRY METHOD 03/26/2024 1:28 PM [facility] VLDL Cholesterol Joe 17.2 mg/dL LAB CHEMISTRY METHOD 03/26/2024 1:28 PM EST [facility] Non HDL Chol. (LDL+VLDL) 93 <145 mg/dL LAB CHEMISTRY METHOD 03/26/2024 1:28 PM [facility] Chol/HDL Ratio 2.2 0.0 - 4.4 LAB CHEMISTRY METHOD 03/26/2024 1:28 PM EST [facility] Blood Venous blood specimen / Unknown Venipuncture / Unknown 03/26/2024 9:25 AM EST 03/26/2024 9:25 AM EST us Qamar PALENCIA LAB BLOOD ORDERABLES Fin al Result [facility] [address] [place] [address], [place] [phone] * MG Mammo Digital Screening w Jorge bilat (02/10/2024 3:20 PM EST) Anatomical Region Laterality Modality Breast Bilateral Mammography 02/11/2024 8:08 AM EST Impressions 02/11/2024 8:11 AM EST Stable mammographic appearance of the breasts. No evidence of malignancy is seen. A negative mammogram in the presence of a clinically suspicious palpable abnormality does not preclude the possibility of malignancy or alter the indications for biopsy. BI-RADS: Category 1: Negative RECOMMENDATION(S): 1: Routine screening mammogram BILATERAL in 1 year. Mammo Location: [facility], [address] [place] [address], [id number], . -------- FINAL REPORT -------- Dictated By: Nelda Russo Dictated Date: 02/11/2024 08:08 ET Assigned Physician: Nelda Russo Reviewed and Electronically Signed By: Nelda Russo Signed Date: 02/11/2024 08:11 ET Workstation ID: [id number] Transcribed By: Self Edit Transcribed Date: 02/11/2024 08:08 ET Narrative 02/11/2024 8:11 AM EST EXAM: MG MAMMO DIGITAL SCREENING W JORGE BILAT EXAM DATE: 02/10/2024 3:03 PM HISTORY: Breast cancer screen, avg risk, asymptomatic (Age => 40y) COMPARISON: Mammograms dating back to 12/29/2019 with most recent of 12/29/2019. TECHNIQUE: Bilateral digital breast tomosynthesis was performed in the CC and MLO projections. Computer aided detection with [employer] AI 3D 3.1 was employed. TISSUE DENSITY: b. There are scattered areas of fibroglandular density. FINDINGS: No suspicious masses, grouped microcalcifications, or areas of architectural distortion are seen. The skin and vascularity are unremarkable. Procedure Note Nelda Russo MD - 02/11/2024 EXAM: MAMMO DIGITAL SCREENING W JORGE BILAT EXAM DATE: 02/10/2024 3:03 PM HISTORY: Breast cancer screen, avg risk, asymptomatic (Age => 41y) COMPARISON: Mammograms dating back to 12/29/2019 with most recent of12/29/2019. TECHNIQUE: Bilateral digital breast tomosynthesis was performed in the CCand MLO projections. Computer aided detection with [employer] AI 3D 3.1was employed. TISSUE DENSITY: b. There are scattered areas of fibroglandular density. FINDINGS: No suspicious masses, grouped microcalcifications, or areas ofarchitectural distortion are seen. The skin and vascularity areunremarkable. IMPRESSION: Stable mammographic appearance of the breasts. No evidence of malignancyis seen. A negative mammogram in the presence of a clinically suspicious palpableabnormality does not preclude the possibility of malignancy or alter theindications for biopsy. BI-RADS: Category 1: Negative RECOMMENDATION(S): 1: Routine screening mammogram BILATERAL in 1 year. Mammo Location: [facility], [address] [place] [address], [address], . -------- FINAL REPORT -------- Dictated By: Nelda Russo Dictated Date: 02/11/2024 08:08 ET Assigned Physician: Nelda Russo Reviewed and Electronically Signed By: Nelda Russo Signed Date: 02/11/2024 08:11 ET Workstation ID: [id number] Transcribed By: Self Edit Transcribed Date: 02/11/2024 08:08 ET us Royce Davis MD IMG BI PROCEDURES Final Res ult * DXA BONE DENISTY STUDY VERTEBRAL FRACTURE, INCLUDING LATERAL VIEW (11/22/2022 3:17 PM EDT) Anatomical Region Laterality Modality Ultrasound 07/16/2022 4:00 PM EDT Narrative 11/22/2022 7:07 PM EDT BONE DENSITY SCAN (DEXA): FINDINGS: Lumbar Spine T-score is 1.5. (SD relative to 20-29 y/o adult) Z-score is 3.7. (SD relative to age matched peers) This is considered normal by WHO criteria. Left Hip T-score is -1.3. Z-score is 0.3. This is considered osteopenia by WHO criteria. Comparison exam(s): 12/03/2016. 5.0% decrease in left hip bone mineral density and 3.7% increase in lumbar spine bone mineral density, both statistically the 95% confidence level. Lateral survey view of the thoracolumbar spine shows no significant compression deformities. IMPRESSION: IMPRESSION: Osteopenia by WHO criteria. This patient has a 6.8% risk of major osteoporotic fracture and a 0.3% risk of hip fracture over the next 10 years. (World Health Organization Fracture Risk Assessment) [facility] Department of Internal Medicine recommends using National Osteoporosis Foundation (NOF) guidelines in treatment decisions related to osteoporosis. NOF guidelines suggest considering treatment for postmenopausal women and men aged 50 or older presenting with the following: History of hip or vertebral fracture. T-score = -2.5 (DXA) at the femoral neck, total hip, or spine, after appropriate evaluation to exclude secondary causes. Low bone mass (T-score between -1.0 and -2.5 at the femoral neck or spine) AND a 10-year probability of a hip fracture = 3% OR a 10-year probability of a major osteoporosis-related fracture = 20% based on the [place]-adapted WHO algorithm Please note that all treatment decisions require clinical judgment and consideration of individual patient factors, including patient preferences, co-morbidities, previous drug use, risk factors not captured in the FRAX model (e.g., frailty, falls, vitamin D deficiency, increased bone turnover, interval significant decline in bone density) and possible under- or over-estimation of fracture risk by FRAX. Optional alternative screening schedule based on jose Dallas., [facility] April 05, 2011 for patients with osteopenia (based on hip BMD T-score) is as follows: * advanced osteopenia (T scores -2.00 to -2.49), BMD testing every year * moderate osteopenia (T scores -1.50 to -1.99), BMD testing every 5 years mild osteopenia or normal BMD (T scores -1.50 and higher), BMD testing every 15 years Procedure Note Trena Espinal MD - 04/23/2023 BONE DENSITY SCAN (DEXA): FINDINGS: Lumbar Spine T-score is 1.5. (SD relative to 20-29 y/o adult) Z-score is 3.7. (SD relative to age matched peers) This is considered normal by WHO criteria. Left Hip T-score is -1.3. Z-score is 0.3. This is considered osteopenia by WHO criteria. Comparison exam(s): 12/03/2016. 5.0% decrease in left hip bone mineraldensity and 3.7% increase in lumbar spine bone mineral density, both statistically the 95%confidence level. Lateral survey view of the thoracolumbar spine shows no significantcompression deformities. IMPRESSION: IMPRESSION: Osteopenia by WHO criteria. This patient has a 6.8% risk of majorosteoporotic fracture and a 0.3% risk of hip fracture over the next 10 years. (World HealthOrganization Fracture Risk Assessment) [facility] Department of Internal Medicine recommendsusing National Osteoporosis Foundation (NOF) guidelines in treatment decisions related toosteoporosis. NOF guidelines suggest considering treatment for postmenopausal women and menaged 50 or older presenting with the following: History of hip or vertebral fracture. T-score = -2.5 (DXA) at the femoral neck, total hip, or spine, afterappropriate evaluation to exclude secondary causes. Low bone mass (T-score between -1.0 and -2.5 at the femoral neck or spine)AND a 10-year probability of a hip fracture = 3% OR a 10-year probability of a majorosteoporosis-related fracture = 20% based on the [place]-adapted WHO algorithm Please note that all treatment decisions require clinical judgment andconsideration of individual patient factors, including patient preferences, co- morbidities,previous drug use, risk factors not captured in the FRAX model (e.g., frailty, falls, vitaminD deficiency, increased bone turnover, interval significant decline in bone density) andpossible under- or over-estimation of fracture risk by FRAX. Optional alternative screening schedule based on jose Dallas., [facility] for patients with osteopenia (based on hip BMD T-score) is as follows: * advanced osteopenia (T scores -2.00 to -2.49), BMD testing every year * moderate osteopenia (T scores -1.50 to -1.99), BMD testing every 5years mild osteopenia or normal BMD (T scores -1.50 and higher), BMD testingevery 15 years Royce Davis MD [facility] PROCEDURES Final Res ult from Last 3 Months or Most Recently Relevant to Health Maintenance Insurance MEDICARE Member Subscriber Plan / Payer (Ef fective 2016-Present) Name:CHARIS GHOTRA Member ID:[id number] Relation to Subscriber:Self Name:Charis Ghotra Subscriber ID:[id number] Payer ID:Not on file Group ID:Not on file Type:Medicare Address: [facility] [address] [phone] [facility] Advance Directives Documents on File Type Date Recorded Patient Kiln Burner Expl [facility] Care Decision (hx) 07/21/2021 AD YEN DIRECTIVE
--- OUTSIDE RECORDS SUMMARY | 2024-10-02 08:27 | XMS_ITS | Data Portability ---
Author Organization [place] [facility] [place] Address [address] [place] [address] Care Team Providers Care Certified First Assistant Name Role Phone GEOVANI PETER Primary Care Provider [phone] Assessment Encounter Date Assessment Date Assessment LastModified by Organization Details LastModified Time 08/24/2022 08/24/2022 Assessment/Plan : This patient is functioning well 1 year after RIGHT total knee arthroplasty. Continue knee conditioning exercises. Pocv-pky-cskhek r medications as needed. Ultimate failure may occur due to mechanical wear, loosening or breakage. Follow-up is recommended to assess for the possibility of failure. Plan for follow-up at 5 years from surgery unless there are issues before then. [email or web address] Not available 08/24/2022 15:09:32 Plan of Treatment Reminders Order Date Submit Date Provider Last Modified By Organization Details Last Modified Time Details Appointments None record ed. Lab None record ed. Referral None record ed. Procedures None record ed. Surgeries None record ed. Imaging XR, knee, 3 view 023 08/25/19 23 [email or web address] [facility], [address], [address], [place], [address], 3 15:24:41 Medication Orders None record ed. Patient TargetsNo targets recorded. Patient InstructionsNo instructions recorded. Reason for Referral None Reported. Procedures Surgical History Date Name Laterality Status Provider Name and Address Organization Details Recorded Time 2 Knee Surgery completed Tai Meraz [place] [facility] 08/24/2022 14:53:19 Imaging Results None recorded. Procedure Notes None recorded. Medical Equipment None Reported. Allergies Allergen ID Allergen Name Allergen Category Reaction Reaction Severity Criticality Documentation Date Start Date Code Code System Note Provider Name and Address Organization Details Recorded Time 4932 Product containin g penicilli n (product) medicatio n Not available Not available Not available 08/24/2022 90050 8001 SNOMED Tai Meraz [place], [facility] 14:52:06 Medications Name Sig Start Date Stop Date Status Note LastModified by Organization Details LastModified Time clindamycin HCl 300 mg capsule TAKE 2 CAPS PRE-OP. ADVISE TAKING PROBIOTIC active Not Available Not Available No t Available atorvastatin 10 mg tablet TAKE 1 TABLET BY MOUTH EVERY DAY active Not Available Not Available No t Available hydrocodone 5 mg-acetamino phen 325 mg tablet TAKE 1 TABLET BY MOUTH EVERY 4 HOURS WITH FOOD. active Not Available Not Available N ot Available clindamycin HCl 150 mg capsule TAKE 1 CAPSULE BY MOUTH THREE TIMES DAILY UNTIL FINISHED. TAKE WITH FOOD active Not Available Not Available No t Available bisacodyl 5 mg tablet,delay ed release TAKE 2 TABLETS BY MOUTH RIGHT BEFORE YOUR FIRST DOSE OF LIQUID PREP. active Not Available Not Available No t Available ibuprofen 600 mg tablet TAKE 1 TABLET EVERY 6 HOURS WITH FOOD DURING WAKING HOURS. DO NOT TAKE MORE THAN 4 TABLETS IN ONE DAY active Not Available Not Available No t Available methylpredni solone 4 mg tablets in a dose pack USE DIRECTED active Not Available Not Available No t Available chlorhexidin e gluconate 0.12 % mouthwash RINSE WITH 1/2 OUNCE (15ML) 2X A DAY active Not Available Not Available No t Available GaviLyte-G 236 gram-22.74 gram-6.74 gram-5.86 gram oral solution TAKE 240 ML BY MOUTH ONCE FOR 1 DOSE. MAY SUBSTITUE FOR ANY PEG. FOLLOW INSTRUCTION S GIVEN BY OFFICE active Not Available Not Available No t Available Vitals Date Recorded Body height Body mass index (BMI) Body weight Provider Name and Address Organization Details Last Updated DateTime 08/24/2022 170.18 cm 22.2 kg/m2 58433.12 g Tai [place] [facility] 08/24/2022 14:52:33 Social History Question Answer Notes LastModified by Organizat ion Details LastModified Time Tobacco Smoking Status Former Smoker Tairick CabelloMerazonel [place], [facility] 08/24/2022 14:52:47 When Did You Quit Smoking? 16+yearssinc elastcigaret te [email or web address] Information not available 08/24/2022 How Many Years Have You Smoked Tobacco? 20 [email or web address] Information not available 08/24/2022 Sex: Unknown Functional Status Question Answer Note LastModified by Organizat ion Details LastModified Time How many times per week do you consume alcohol? 3-4 times per week [email or web address] Information not available 08/24/2022 Do you use any illicit or recreational drugs? No Information not available 08/24/2022 Do you or have you ever used any other forms of tobacco or nicotine? No [email or web address] Information not available 08/24/2022 What is your level of alcohol consumption? Occasional [email or web address] Information not available 08/24/2022 Mental Status None recorded. Family History Nothing Reported. Medical History Condition Response Coronary Artery Disease N Gout N Hyperthyroidism N MRSA N Blood Transfusion N Emphysema N Hypothyroidism N Depression N COPD N Pacemaker N Vascular Disease N Gastrointestinal Disease N Anxiety Disorder N Autoimmune disease N Arthritis N Cancer N Stroke N High Cholesterol N Neurologic Disorder N Liver Disease N Organ Transplant N Rheumatoid Arthritis N Arrhythmia N Fibromyalgia N Kidney Disease N Allergies/Hayfever N Adverse Reaction to Anesthesia N Thyroid Problems N Anemia N Brain Injury N Heart Attack (AR) N Osteopenia N Diabetes N Bleeding Disorder N Seizures/Epilepsy N AIDS/HIV N Congestive Heart Failure (CHF) N Asthma N Amputation N Reflux/GERD N Sleep Apnea N Hepatitis N Aneurysm N Heart Disease N Pulmonary Embolism N Hypertension N Osteoporosis N Gynecological HistoryNo gynecological history recorded. Obstetrics History GPAL:G 0 P 0 0 0 0 Past Encounters Encounter ID Performer Location Encounter Start Date Encounter Closed Date Diagnosis/Indication Diagnosis SNOMED-CT Code Diagnosis ICD10 Code Diagnosis Note [id number] MD SHANEL Tracykasey harmon [address] [place] [address] [address] [facility] [place] [address] 08/24/2022 14:40:08 08/24/2022 15:13:36 History of right total knee replacement [id number] Z96.651 Aftercare 171133548 Z47. 1 Health Concerns Section Related Observation LastModified by Organization Detai ls LastModified Time None Recorded Concern Status LastModified by Organization Details LastModified Time None Recorded Advance Directives Directive None Recorded Payers None recorded. Notes Date Note Type Note Provider Name and Address Organization Details Recorded Time 08/24/2022 text/html HPI: Patient is here for 1 year follow-up for a RIGHT total knee replacement. she has recovered very well. She reports really no pain. She reports good function. She states she is able to do all the activities she would like to do. She states she has good motion. She has kneeled on it. She does have some trouble getting up from a kneeled position. Patient reports good pain relief in the knee and satisfactory confucianism of function in terms of activities of daily living. Physical Exam: Patient is well nourished, well-developed, in no acute distress, with appropriate mood and affect. The patient is oriented to time, place, and person. Respirations are even and unlabored. There is no inguinal adenopathy. Examination of the contralateral knee shows normal range of motion, strength, no tenderness, and intact skin. The affected limb is well-perfused, with well healed skin incision. The patient demonstrates good knee motion, stability, and strength. The knee moves from 0-135 degrees. The alignment of the knee is neutral. Muscle strength is normal. Pedal pulses are palpable. Hip examination, including flexion and internal rotation, was negative in that groin pain was not produced. Remigio Ocasio MD [address] [place] [address], [id number], [place] [facility] 08/24/2022 15:10:01 OBGyn Episode No OBEpisode recorded.
--- NOTE | 2024-10-02 09:26 | MHC.AU.HA3 ---
Hearing Instrument Follow-Up- Binaural Date of Visit: 10/02/24 Right Ear: none Left Ear: Make, Model, Color, Serial Number: Maryan Brito [id number] SN: [id number] Color: Sand Beige Asset Administrator Repair Warranty: 01/30/2025 Asset Administrator Loss and Damage Warranty: 01/30/2025 [facility] Service Plan: 01/30/2025 Battery Size: Rechargeable Site Superintendent/Slim Tube: 1M Earmold/Dome/CShell/SlimTip: Small open dome with retention tail Type of Wax Guard: CeruStop Dispensed By: [facility] Date of Fittin11/09/2021 Follow-Up Summary: Charis is seen for hearing aid maintenance. She wanted to check in about getting her hearing aid sent out before warranty expires. Advised warrany expires 01/30. Advised we could send out now or wait if she prefers. Opted for maintenance today and send out in December. Charis notes increased tinnitus As over the last six months or so. Recommended updated audiogram. Cleaned aid, ran through dehumidifier; replaced dome, wax guard, and tail. Listening check positive. Recommendations: Recommendations: Contact PCP for referral for updated audiogram. Return to send hearing aid for end of warranty check in December. 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
== END 2024-10-02 08:23 | disposition home or self-care (01) ==
LOC: HO.HAP 08:22
PROVIDERS: Visit Provider Internal Medicine
DX: Z13.89 Encounter for screening for other disorder (principal)

== ENCOUNTER 2025-01-11 10:57 | Outpatient (REF) | payer SELFPAY ==
--- OUTSIDE RECORDS SUMMARY | 2025-01-11 13:44 | XMS_ITS ---
[facility] Name [facility] History of Medication Use Medication Directions Dispensed Refills Start Date End Date Stat atorvastatin 10 mg tablet TAKE 1 TABLET BY MOUTH EVERY DAY active bisacodyl 5 mg tablet,delayed release TAKE 2 TABLETS BY MOUTH RIGHT BEFORE YOUR FIRST DOSE OF LIQUID PREP. active chlorhexidine gluconate 0.12 % mouthwash RINSE WITH 1/2 OUNCE (15ML) 2X A DAY active clindamycin HCl 150 mg capsule TAKE 1 CAPSULE BY MOUTH THREE TIMES DAILY UNTIL FINISHED. TAKE WITH FOOD active clindamycin HCl 300 mg capsule TAKE 2 CAPS PRE-OP. ADVISE TAKING PROBIOTIC active GaviLyte-G 236 gram-22.74 gram-6.74 gram-5.86 gram oral solution TAKE 240 ML BY MOUTH ONCE FOR 1 DOSE. MAY SUBSTITUE FOR ANY PEG. FOLLOW INSTRUCTIONS GIVEN BY OFFICE active hydrocodone 5 mg-acetaminophen 325 mg tablet TAKE 1 TABLET BY MOUTH EVERY 4 HOURS WITH FOOD. active ibuprofen 600 mg tablet TAKE 1 TABLET EVERY 6 HOURS WITH FOOD DURING WAKING HOURS. DO NOT TAKE MORE THAN 4 TABLETS IN ONE DAY active methylprednisolone 4 mg tablets in a dose pack USE DIRECTED active Allergies Allergen Reaction Severity Comment Documented Date Source Statu s PENICILLINS ENS_AONECT Encounters Encounter Type Encounter Reason Primary Diagnosis Location Date Ambulatory [facility] 09/27/2022 Ambulatory [facility] 09/26/2022 Ambulatory [facility] [place] 08/24/2022 Ambulatory [facility] 08/24/2022 Ambulatory [facility] [place] 08/24/2022 Ambulatory [facility] [place] 08/22/2022 Ambulatory [facility] [place] 06/20/2022
--- OUTSIDE RECORDS SUMMARY | 2025-01-11 13:44 | XMS_ITS | Clinical Summary ---
Author Organization [address] Address [address] [place] [phone] Phone Care Team Providers Care Email Campaign Manager Name Role Phone Unavailable Primary Care Provider Unavailabl e Allergies Active Allergy Reactions Criticality Noted Date Comments Penicillins Swelling Medium 01/06/2013 Swelling At Arm site and rash Medications lysine 1,000 mg tablet Take 1 tablet (1,000 mg total) by mouth 1 (one) time each day. Active sodium chloride (AYR) 0.65 % nasal drops Administer 1 spray into affected nostril(s) if needed. 4 Active fluticasone propionate (FLONASE) 50 mcg/actuation nasal spray Administer 1 spray into affected nostril(s) if needed. 4 Active calcium carbonate-vitam in D3 600 mg-10 mcg (400 unit) capsule Take 1 tablet by mouth 1 (one) time each day. Active multivitamin with minerals (CENTRUM/CERTAV IT) 18-400 mg-mcg tablet tablet Take 1 tablet by mouth 3 (three) times a week. Active vit A/C/E ac/ZnOx/cupric oxide (EYE VITAMIN AND MINERALS ORAL) Take 1 tablet by mouth. Takes on days that she does not take multivitamin Active apixaban (Eliquis) 5 mg tablet Take 1 tablet (5 mg total) by mouth 2 (two) times a day. 180 tablet 3 5 Active atorvastatin (LIPITOR) 10 mg tablet Take 1 tablet (10 mg total) by mouth 1 (one) time each day. 90 tablet 5 Active metoprolol succinate (TOPROL-XL) 25 mg 24 hr tablet Take 0.5 tablets (12.5 mg total) by mouth 1 (one) time each day. 45 tablet 1 5 Active Active Problems Problem Noted Date [...] believe she was ever seen by a microstrategy developer. I will place a referral today. Orders: [...] panel with reflex to direct LDL; Future Immunizations Immunization Administration Dates Next Due COVID-19 ([place]/Comirnaty) 12yo and older 01/10/2023 Influenza trivalent, 0.5mL ( Fluad) 65yo and older 01/25/2021 Influenza trivalent, 0.5mL ( Fluzone High-dose) 65yo and older 01/07/2024 Influenza trivalent, 0.5mL, preservative free (Fluarix; FluLaval; Fluzone) ages 6mo and older (Afluria) 3 years and older 01/13/2018,12/16/2014,01/20/2014,12/08 Influenza, Unspecified 01/10/2023,12/28/2021 [place]ador SARS-CoV-2 COVID-19, mRNA, LNP-S, preservative free 01/10/2023,01/10/2022,01/13/2021,07/09,06/17/2020,05/11/2020 Pneumococcal conjugate 13 va lent (Prevnar 13, PCV13) 2mo and older 11/06/2016 Pneumococcal polysaccharide 23 valent (Pneumovax 23) 2yo and older 01/24/2018 Tdap Tetanus diptheria acell ular pertussis (Boostrix; Adacel) 7yo and older 03/26/2024,01/06/2013 Surgical History Surgery Date Site/Laterality Comments TONSILLECTOMY PROCEDURE: [place] TONSILLECTOMY PRIMARY/SECONDARY <AGE 12 COLONOSCOPY 03/18/2001 PROCEDURE: HISTORICAL COLONOSCOPY; COMMENT: [facility] negative COLONOSCOPY W/ BIOPSIES 05/18/2014 PROCEDURE: [place] COLONOSCOPY W/BIOPSY SINGLE/MULTIPLE; COMMENT: bx RC polyp: [...] Sarah Alive RN, jennyfer sery Sister 2 Mar Alive gout as child; 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 For example, child day care provider or elderly care for an older adult? [...] Date Recorded What is your living situation? Unrecognized valu e 08/17/2024 Comments No Sex and Gender Information [...] exists Colorectal Cancer Screening: Colonoscopy 03/16/2025 03/16/2022 Social Influencers of Health Screening 08/17/2025 08/17/2024 Breast Cancer Screening 02/09/2026 02/10/20 24, 02/01/2023, 02/01/2023, Additional history exists RSV Immunization Adult Patients (1 - 1-dose 75+ series) 11/01/2026 Cholesterol Screening (Lipid Panel) 03/26/2029 03/26/2024, 12/28/2022 Osteoporosis Screening (Bone Density Screening) 11/22/2032 11/22/2022, 12/03/2016 DTaP,Tdap,and Td Vaccines (3 - Td or Tdap) 03/26/2034 03/26/2024, 01/06/2013 Pneumococcal Vaccine: 50+ Years Completed 01/24/2018, 11/06/2016 Depression Screening Completed 08/17/2024 HIB Vaccines Aged Out No longer eligi [...] this topic Medical Devices Implanted Type Area Cell Maker Device Identifier Shelf Expiration Date Model / Serial / Lot Knee Ptla Asym Tritanium 32x10 Stry-Howm [id number] Implanted:Qty: 1 on 07/31/2021 by Remigio Ocasio MD Right: Knee [employer] [id number] 09/21/2025 5552-L-320 / / [id number] Knee Tib Insrt Cr 5x13mm Stry-Howm [id number] Implanted:Qty: 1 on 07/31/2021 by Remigio Ocasio MD Right: Knee [employer] [id number] 12/25/2025 5530-P-511 / / [id number] Knee Bsplt Triathlon Ti Sz 5 Stry-Howm [id number] Implanted:Qty: 1 on 07/31/2021 by Remigio Ocasio MD Right: Knee [employer] [id number] 05/07/2026 5536-B-500 / / [id number] Knee Fem Bsplt W Pa Stry-How [id number] Implanted:Qty: 1 on 07/31/2021 by Remigio Ocasio MD Right: Knee [employer] [id number] 01/11/2026 5517-F-602 / / [id number] Procedures Procedure Name Priority Date/Time Associated Diagnosis Comments LIPID PANEL WITH REFLEX TO DIRECT LDL [...] Recently Relevant to Health Maintenance Results * Lipid panel with reflex to direct LDL (03/26/2024 9:25 AM EST) Cholesterol 173 0 - 200 mg/dL LAB CHEMISTRY METHOD 03/26/2024 1:28 PM EST [facility] Triglycerides 86 0 - 150 mg/dL LAB CHEMISTRY METHOD 03/26/2024 1:28 PM EST [facility] HDL 80 >=40 mg/dL LAB CHEMISTRY METHOD 03/26/2024 1:28 PM [facility] LDL Calculated 76 0 - 100 mg/dL LAB CHEMISTRY METHOD 03/26/2024 1:28 PM [facility] VLDL Cholesterol Joe 17.2 mg/dL LAB CHEMISTRY METHOD 03/26/2024 1:28 PM EST [facility] Non HDL Chol. (LDL+VLDL) 93 <145 mg/dL LAB CHEMISTRY METHOD 03/26/2024 1:28 PM EST [facility] Chol/HDL Ratio 2.2 0.0 - 4.4 LAB CHEMISTRY METHOD 03/26/2024 1:28 PM EST [facility] Blood Venous blood specimen / Unknown Venipuncture / Unknown 03/26/2024 9:25 AM EST 03/26/2024 9:25 AM EST us Qamar PALENCIA LAB BLOOD ORDERABLES Fin al Result [facility] [address] [place] [address], * MG Mammo Digital Screening w Jorge [...] mammogram BILATERAL in 1 year. Mammo Location: [facility], [address] [place] [address], [id number], . -------- FINAL REPORT -------- Dictated By: Nelda Russo Dictated Date: 02/11/2024 08:08 ET Assigned Physician: Nelda Russo Reviewed and Electronically Signed By: Nelda Russo Signed Date: 02/11/2024 08:11 ET Workstation ID: [id number] Transcribed By: Self Edit Transcribed Date: 02/11/2024 08:08 ET Narrative 02/11/2024 8:11 AM EST EXAM: MAMMO DIGITAL SCREENING W JORGE BILAT EXAM DATE: 02/10/2024 3:03 PM HISTORY: Breast cancer screen, avg risk, asymptomatic (Age => 40y) COMPARISON: Mammograms dating back to 12/29/2019 with most recent of 12/29/2019. TECHNIQUE: Bilateral digital breast tomosynthesis was performed in the CC and MLO projections. Computer aided detection with [employer] 3D 3.1 was employed. TISSUE DENSITY: b. [...] CCand MLO projections. Computer aided detection with Mic[employer] 3D 3.1was employed. TISSUE DENSITY: b. There [...] mammogram BILATERAL in 1 year. Mammo Location: [facility], [address] [place] [address], [phone], . -------- FINAL REPORT -------- Dictated By: Nelda Russo Dictated Date: 02/11/2024 08:08 ET Assigned Physician: Nelda Russo Reviewed and Electronically Signed By: Nelda Russo Signed Date: 02/11/2024 08:11 ET Workstation ID: [id number] Transcribed By: Self Edit Transcribed Date: 02/11/2024 [...] (World Health Organization Fracture Risk Assessment) The [facility] Department of Internal Medicine recommends using National [...] alternative screening schedule based on jose Dallas., [facility] April 05, 2011 for patients [...] years. (World HealthOrganization Fracture Risk Assessment) The [facility] Department of Internal Medicine recommendsusing National Osteoporosis [...] FRAX. Optional alternative screening schedule based on tiffany Dallas al., NEJMJanuary 2011 for patients with osteopenia (based on hip BMD T-score) is as follows: * advanced osteopenia (T scores -2.00 to -2.49), BMD testing every year * moderate osteopenia (T scores -1.50 to -1.99), BMD testing every 5years mild osteopenia or normal BMD (T scores -1.50 and higher), BMD testingevery 15 years us Royce Davis MD [facility] [place] PROCEDURES Final Res ult from Last 3 Months or Most Recently Relevant to Health Maintenance Insurance MEDICARE [facility] [[email or web address]] Advance Directives Documents on File Type Date Recorded 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
--- OUTSIDE RECORDS SUMMARY | 2025-01-11 13:44 | XMS_ITS | Clinical Summary ---
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 Name Role Phone Leslie Lanza MD Primary [...] Immunizations Name Administration Dates Next Due Covid-19 (Easy Tempo) Dilution Required 01/13/2021,0 07/09/2020,06/17/2020 Family History Medical [...] Tdap) 01/06/2023 01/06/2013 COVID-19 Vaccine ( season) 2024 01/13/2021, 07/09/2020, 06/17/2020, Additional history exists Influenza [...] this topic Medical Devices Implanted Type Area Raw Stock Dyeing Machine Tender Device Identifier Shelf Expiration Date Model / Serial / Lot Knee Ptla Asym Tritanium 32x10 Stry-Howm [id number] - [id number] Implanted:Qty: 1 on 07/31/2021 by Remigio Ocasio MD at [facility] Right: Knee [employer] [id number] 09/21/2025 5552-L-320 / / [id number] Knee Tib Insrt Cr 5x13mm Stry-Howm [id number] - [id number] Implanted:Qty: 1 on 07/31/2021 by Remigio Ocasio MD at [facility] Right: Knee [employer] [id number] 12/25/2025 5530-P-511 / / [id number] Knee Bsplt Triathlon Ti Sz 5 Stry-Howm [id number] - [id number] Implanted:Qty: 1 on 07/31/2021 by Remigio Ocasio MD at [facility] [place] Right: Knee [employer] [id number] 05/07/2026 5536-B-500 / / [id number] Knee Fem Bsplt W Pa [facility] [id number] - [id number] Implanted:Qty: 1 on 07/31/2021 by Remigio Ocasio MD at 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 Care Teams Oliver Filter Operator Relationship Specialty Start Date End Date Leslie Lanza MD PCP - General Internal Medicine 03/31/21
== END 2025-01-11 10:58 | disposition home or self-care (01) ==
LOC: HO.HAP 10:57
PROVIDERS: Visit Provider Internal Medicine
DX: Z13.89 Encounter for screening for other disorder (principal)

== ENCOUNTER 2025-01-25 15:59 | Outpatient (REF) | payer SELFPAY ==
--- OUTSIDE RECORDS SUMMARY | 2025-01-25 17:55 | XMS_ITS | Clinical Summary ---
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 I will place a referral today. Orders: [...] Immunizations Immunization Administration Dates Next Due COVID-19 (DroneCast/Comirnaty) 12yo and older 01/10/2023 Influenza trivalent, 0.5mL ( Fluad) 65yo and older 01/25/2021 Influenza trivalent, 0.5mL ( Fluzone High-dose) 65yo and older 01/07/2024 Influenza trivalent, 0.5mL, preservative free (Fluarix; FluLaval; Fluzone) ages 6mo and older (Afluria) 3 years and older 01/13/2018,12/16/2014,01/20/2014,12/08 Influenza, Unspecified 01/10/2023,12/28/2021 Dr[place]Cast SARS-CoV-2 COVID-19, mRNA, LNP-S, preservative free 01/10/2023,01/10/2022,01/13/2021,07/09,06/17/2020,05/11/2020 Pneumococcal conjugate 13 va lent (Prevnar 13, PCV13) 2mo and older 11/06/2016 Pneumococcal polysaccharide 23 valent (Pneumovax 23) 2yo and older 01/24/2018 Tdap Tetanus diptheria acell ular pertussis (Boostrix; Adacel) 7yo and older 03/26/2024,01/06/2013 Surgical History Surgery Date Site/Laterality Comments TONSILLECTOMY PROCEDURE: [place] TONSILLECTOMY PRIMARY/SECONDARY <AGE 12 COLONOSCOPY 03/18/2001 PROCEDURE: HISTORICAL COLONOSCOPY; COMMENT: [facility] negative COLONOSCOPY W/ BIOPSIES 05/18/2014 PROCEDURE: [place] COLONOSCOPY W/BIOPSY SINGLE/MULTIPLE; COMMENT: bx RC polyp: [...] Sister 2 Santana Alive 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 For example, residential child care counselor or elderly care for an older adult? [...] 2024 01/14/2024, 01/10/2023, 01/10/2023, Additional history exists Colorectal Cancer Screening: Colonoscopy [...] Completed 01/24/2018, 11/06/2016 Depression Screening Completed 08/17/2024 Influenza Vaccine Completed 01/22/2025, , 01/10/2023, Additional history exists HIB Vaccines Aged Out No longer eligi [...] this topic Medical Devices Implanted Type Area Shop Service Technician Device Identifier Shelf Expiration Date Model / Serial / Lot Knee Ptla Asym Tritanium 32x10 Stry-Howm [id number] Implanted:Qty: 1 on 07/31/2021 by Remigio Ocasio MD Right: Knee [employer] [id number] 09/21/2025 5552-L-320 / / [id number] Knee Tib Insrt Cr 5x13mm Stry-Howm [id number] Implanted:Qty: 1 on 07/31/2021 by Remigio Ocasio MD Right: Knee [employer] [id number] 12/25/2025 5530-P-511 / / [id number] Knee Bsplt Triathlon Ti Sz 5 Stry-Howm [id number] Implanted:Qty: 1 on 07/31/2021 by Remigio Ocasio MD Right: Knee [employer] [id number] 05/07/2026 5536-B-500 / / [id number] Knee Fem Bsplt W Pa Stry-Howm [id number] Implanted:Qty: 1 on 07/31/2021 by Remigio Ocasio MD Right: Knee [employer] [id number] 01/11/2026 5517-F-602 / / [id number] Procedures Procedure [...] LAB CHEMISTRY METHOD 03/26/2024 1:28 PM EST [facility] Triglycerides 86 0 - 150 mg/dL LAB CHEMISTRY METHOD 03/26/2024 1:28 PM EST [facility] HDL 80 >=40 mg/dL LAB CHEMISTRY METHOD 03/26/2024 1:28 PM EST [facility] LDL Calculated 76 0 - 100 mg/dL LAB CHEMISTRY METHOD 03/26/2024 1:28 PM EST [facility] VLDL Cholesterol Joe 17.2 mg/dL LAB CHEMISTRY METHOD 03/26/2024 1:28 PM EST [facility] Non HDL Chol. (LDL+VLDL) 93 <145 mg/dL LAB CHEMISTRY METHOD 03/26/2024 1:28 PM EST [facility] Chol/HDL Ratio 2.2 0.0 - 4.4 LAB CHEMISTRY METHOD 03/26/2024 1:28 PM EST [facility] Blood Venous blood specimen / Unknown Venipuncture / Unknown 03/26/2024 9:25 AM EST 03/26/2024 9:25 AM EST us Qamar PALENCIA LAB BLOOD ORDERABLES Fin al Result [facility] [address] [place] [address], * MG Mammo Digital Screening w Jorge [...] mammogram BILATERAL in 1 year. Mammo Location: [facility], [address] [place] [address], [phone], . -------- FINAL REPORT -------- Dictated By: Nelda Russo Dictated Date: 02/11/2024 08:08 ET Assigned Physician: Nelda Russo Reviewed and Electronically Signed By: Nelda Russo Signed Date: 02/11/2024 08:11 ET Workstation ID: [id number] Transcribed By: Self Edit Transcribed Date: 02/11/2024 [...] and MLO projections. 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 TISSUE DENSITY: b. [...] CCand MLO projections. Computer aided detection with iCAD Floob[employer] AI 3D 3.1was employed. TISSUE DENSITY: b. [...] mammogram BILATERAL in 1 year. Mammo Location: [facility], [address] [place] [address], [phone], . -------- FINAL REPORT -------- Dictated By: Nelda Russo Dictated Date: 02/11/2024 08:08 ET Assigned Physician: Nelda Russo Reviewed and Electronically Signed By: Nelda Russo Signed Date: 02/11/2024 08:11 ET Workstation ID: [id number] Transcribed By: Self Edit Transcribed Date: 02/11/2024 [...] (World Health Organization Fracture Risk Assessment) The [facility] Department of Internal Medicine recommends using National [...] alternative screening schedule based on jose Dallas., [facility] April 05, 2011 for patients with osteopenia [...] years. (World HealthOrganization Fracture Risk Assessment) The [facility] Department of Internal Medicine recommendsusing National Osteoporosis [...] alternative screening schedule based on jose Dallas., NEJMJanuary 2011 for patients with osteopenia (based on hip BMD T-score) is as follows: * advanced osteopenia (T scores -2.00 to -2.49), BMD testing every year * moderate osteopenia (T scores -1.50 to -1.99), BMD testing every 5years mild osteopenia or normal BMD (T scores -1.50 and higher), BMD testingevery 15 years us Royce Davis MD IM US PROCEDURES Final Res ult from Last 3 Months or Most Recently Relevant to Health Maintenance Insurance MEDICARE [facility] Advance Directives Documents on File Type Date Recorded 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
--- OUTSIDE RECORDS SUMMARY | 2025-01-25 17:55 | XMS_ITS | Data Portability ---
Author Organization [place] [facility] [place] Address [address] [place] [address] Care Team Providers Care Grade Teacher Name Role Phone GEOVANI PETER Primary Care Provider [phone] Assessment Encounter Date Assessment Date Assessment LastModified by Organization Details LastModified Time 08/24/2022 08/24/2022 Assessment/Plan : This patient is functioning well 1 year after RIGHT total knee arthroplasty. Continue knee conditioning exercises. [id number]-naz-uchuoy r medications as needed. Ultimate failure may [...] view 023 08/25/19 23 [email or web address] [facility], [address], [place], [address], 3 15:24:41 Medication Orders None record ed. Patient TargetsNo targets recorded. Patient InstructionsNo instructions recorded. Reason for Referral None Reported. Problems Name Problem SNOMED Code Status Onset Date Resolution Date Notes Provider Name and Address Organization Details Recorded Time Hyperchol esterolem ia 46827944 Active 2012 Hyperchole sterolemia Not Available [facility] 5 23:52:27 Adenoma of large intestine 150646847 Active 2014 Adenoma of colon - Overview: Dr. Miranda ; 2 yr f/u; pt has declined Not Available [facility] 5 23:52:26 Localized , primary osteoarth ritis of the hand 543154513 Active 2014 Primary localized osteoarthr osis of hand Not Available [facility] 5 23:52:26 Environme ntal allergy 208442089 Active 2016 Environmen navdeep allergies Not Available [facility] 5 23:52:26 Primary gonarthro sis, bilateral 926035009 Active 2017 Primary osteoarthr itis of both knees Not Available [facility] 5 23:52:25 Polyp of colon 00927530 Active 2020 Colon polyp - Overview: 25mm polpy cecum- repeat colonoscop y in 6 months for surveillan ce after piecemeal polypetomy Not Available [facility] 5 23:52:25 Diverticu lar disease 532932068 Active 2020 Diverticul osis - Overview: Sigmoid colon- colonoscop y 03/02/2021 Not Available [facility] 5 23:52:27 Problem Notes None recorded. Procedures Surgical History Date Name Laterality Status Provider Name and Address Organization Details Recorded Time 2 Knee Surgery completed Tai Meraz [place] [facility] 08/24/2022 14:53:19 Imaging Results None recorded. Procedure Notes None recorded. Medical Equipment None Reported. Allergies Allergen ID Allergen Name Allergen Category Reaction Reaction Severity Criticality Documentation Date Start Date Code Code System Note Provider Name and Address Organization Details Recorded Time 4932 Product containin g penicilli n (product) medicatio n Not available Not available Not available 08/24/2022 35189 8001 SNOMED Tai Meraz [facility] [place], [place] [facility] 3 14:52:06 Medications Name Sig Start Date Stop Date Status Note LastModified by Organization Details LastModified Time acetaminoph en 325 mg tablet Take 3 tablets (975 mg total) by mouth every 6 (six) hours as needed for pain. 08/01 completed Not Available Not Available Not Available clindamycin HCl 300 mg capsule TAKE 2 CAPS PRE-OP. ADVISE TAKING PROBIOTIC active Not Available Not Available No t Available atorvastati n 10 mg tablet TAKE 1 TABLET BY MOUTH EVERY DAY active Not Available Not Available No t Available aspirin 325 mg tablet Take 325 mg by mouth every night at bedtime. As needed for pain 07/31 completed Not Available Not Available Not Available hydrocodone 5 mg-acetamin ophen 325 mg tablet TAKE 1 TABLET BY MOUTH EVERY 4 HOURS WITH FOOD. active Not Available Not Available No t Available meloxicam 15 mg tablet Take 1 tablet (15 mg total) by mouth daily for 30 days. 08/31 completed Not Available Not Available Not Available ondansetron HCl 4 mg tablet Take 1 tablet (4 mg total) by mouth daily as needed for nausea. 08/01 completed Not Available Not Available Not Available clindamycin HCl 150 mg capsule TAKE 1 CAPSULE BY MOUTH THREE TIMES DAILY UNTIL FINISHED. TAKE WITH FOOD active Not Available Not Available No t Available lysine 1,000 mg tablet Take 2 tablets by mouth daily. active Not Available Not Available No t Available aspirin 81 mg tablet,marysol yed release Take 1 tablet (81 mg total) by mouth 2 (two) times a day for 28 days. 08/30 completed Not Available Not Available Not Available methocarbam ol 750 mg tablet Take 1 tablet (750 mg total) by mouth 4 (four) times a day. 2021 active Not Available Not Available Not Avai lable pantoprazol e 40 mg tablet,marysol yed release Take 1 tablet (40 mg total) by mouth daily. 08/01 completed Not Available Not Available Not Available bisacodyl 5 mg tablet,marysol yed release TAKE 2 TABLETS BY MOUTH RIGHT BEFORE YOUR FIRST DOSE OF LIQUID PREP. active Not Available Not Available No t Available ibuprofen 600 mg tablet TAKE 1 TABLET EVERY 6 HOURS WITH FOOD DURING WAKING HOURS. DO NOT TAKE MORE THAN 4 TABLETS IN ONE DAY active Not Available Not Available No t Available methylpredn isolone 4 mg tablets in a dose pack USE DIRECTED active Not Available Not Available No t Available oxycodone 5 mg tablet Take 1 tablet (5 mg total) by mouth every 4 (four) hours as needed for pain. 2021 active Not Available Not Available Not Avai lable chlorhexidi ne gluconate 0.12 % mouthwash RINSE WITH 1/2 OUNCE (15ML) 2X A DAY active Not Available Not Available No t Available cholecalcif dionte (vitamin D3) 25 mcg (1,000 unit) tablet Take 25 mcg by mouth daily. active Not Available Not Available No t Available GaviLyte-G 236 gram-22.74 gram-6.74 gram-5.86 gram oral solution TAKE 240 ML BY MOUTH ONCE FOR 1 DOSE. MAY SUBSTITUE FOR ANY PEG. FOLLOW INSTRUCTI ONS GIVEN BY OFFICE active Not Available Not Available No t Available Vitals Date Recorded Body height Body mass index (BMI) Body weight Provider Name and Address Organization Details Last Updated DateTime 08/24/2022 170.18 cm 22.2 kg/m2 46668.[address] [place] [facility] 08/24/2022 14:52:33 Social History Question Answer Notes LastModified by Zingaya Details LastModified Time Tobacco Smoking Status Former Smoker Tairick CabelloMeraz [facility] [place], [place] [facility] 08/24/2022 14:52:47 When Did You Quit Smoking? 16+yearssinc [email or web address] te Information not available 08/24/2022 How Many Years Have You Smoked Tobacco? 20 [email or web address] Information not available 08/24/2022 Sex: Unknown Functional Status Question Answer Note LastModified by Organizat ion Details LastModified Time How many times per week do you consume alcohol? 3-4 times per week [email or web address] Information not available 08/24/2022 Do you use any illicit or recreational drugs? No [email or web address] Information not available 08/24/2022 Do you or have you ever used any other forms of tobacco or nicotine? No [email or web address] Information not available 08/24/2022 What is your level of alcohol consumption? Occasional [email or web address] Information not available 08/24/2022 Mental Status None [...] Anemia N Brain Injury N Heart Attack (MT) N Osteopenia N Diabetes N Bleeding Disorder N Seizures/Epilepsy N AIDS/HIV N Congestive Heart Failure (CHF) N Asthma N Amputation N Reflux/GERD N Sleep Apnea N Hepatitis N Aneurysm N Heart Disease N Pulmonary Embolism N Hypertension N Osteoporosis N Gynecological HistoryNo gynecological history recorded. Obstetrics History GPAL:G 0 P 0 0 0 0 Immunizations Vaccine Type Date Status Note Provider Nam e and Address Organization Details Recorded Time COVID-19, mRNA, LNP-S, PF, 30 mcg/0.3 mL dose 01/13/2021 completed Not Available [facility] 5 06:12:42 COVID-19, mRNA, LNP-S, PF, 30 mcg/0.3 mL dose 07/09/2020 completed Not Available [facility] 5 06:12:42 COVID-19, mRNA, LNP-S, PF, 30 mcg/0.3 mL dose 06/17/2020 completed Not Available [facility] 5 06:12:42 Past Encounters Encounter ID Performer Location Encounter Start Date Encounter Closed Date Diagnosis/Indication Diagnosis SNOMED-CT Code Diagnosis ICD10 Code Diagnosis IMO Codes Diagnosis Note [id number] MD SHANEL Tracy [address] [address] 08/24/2022 14:40:08 08/24/2022 15:13:36 History of right total knee replacement [id number] 749368 Z96.651 Aftercare 936878923 Z47. 1 Health Concerns Section Related Observation [...] pain relief in the knee and satisfactory sikh of function in terms of activities of [...] pain was not produced. Remigio Ocasio MD [address] [place] [address],[address], [address], [place] [facility] 08/24/2022 15:10:01 OBGyn Episode No OBEpisode recorded.
== END 2025-01-25 16:00 | disposition home or self-care (01) ==
LOC: HO.HAP 15:59
PROVIDERS: Visit Provider Otolaryngology
DX: Z13.89 Encounter for screening for other disorder (principal)